=== PATIENT | female | born 1985 | race Caucasian/White ===

== ENCOUNTER → 2020-02-12 | Outpatient (CLI) | payer MEDICAID ==
[~2020-02-12] MED LIST: DULO60CA64 PO; GABA-531 PO; OMEP40CA12 PO; TOPUD PO
== END | disposition home or self-care (01) ==
LOC: LAB 13:15
PROVIDERS: ATTEND Neurological Surgery
DX: Z01.812 Encounter for preprocedural laboratory examination (principal); Z20.828 Contact with and (suspected) exposure to other viral communicable diseases
CPT/HCPCS: C9803; U0003